=== PATIENT | female | born 1990 | race African-American/Black ===

== ENCOUNTER 2022-11-07 18:44 | Emergency (ER) | payer MEDICARE ==
[~2022-11-07] VITALS: Ht 172.7 cm; Wt 77.0 kg
[2022-11-07 18:56] VITALS: BP 113/87; O2SAT 100
[2022-11-07 19:01] VITALS: PULSE 83; RESP 20
[2022-11-07] MEDS ORDERED: ACETAMINOPHEN 325MG TABLET PO STA (20:31)
[2022-11-07] MEDS ORDERED: ACET-2708 PO (20:44)
[2022-11-07] MEDS ORDERED: LORA-1349 PO (20:44)
[2022-11-07] MEDS ORDERED: DOXY100T28 PO (20:44)
[2022-11-07 21:06] VITALS: TEMP 98.9
== END 2022-11-07 23:04 | disposition home or self-care (01) ==
LOC: ER 18:44
DX: S80.862A Insect bite (nonvenomous), left lower leg, initial encounter (principal); W57.XXXA Bitten or stung by nonvenomous insect and other nonvenomous arthropods, initial encounter; Y93.89 Activity, other specified; Y92.89 Other specified places as the place of occurrence of the external cause; Y99.8 Other external cause status
CPT/HCPCS: 81025; 99283

== ENCOUNTER 2022-12-17 11:40 | Emergency (ER) | payer OTHER, MEDICAID ==
[~2022-12-17] VITALS: Ht 170.2 cm; Wt 73.0 kg
[~2022-12-17 11:40] MED LIST: ACET-2708 PO; DOXY100T28 PO; LORA-1349 PO
[2022-12-17 12:11] VITALS: BP 111/81
[2022-12-17 12:15] VITALS: TEMP 98.6
[2022-12-17] MEDS ORDERED: IPRATROPIUM BROMIDE (0.02%) 0.5MG/2.5ML NEB HHN ONE (12:15)
[2022-12-17] MEDS ORDERED: METHYLPREDNISOLONE SOD SUCC 125MG/2ML (ACT-O-VIAL) IM ONE (12:15)
[2022-12-17] MEDS ORDERED: ACETAMINOPHEN 325MG TABLET PO ONE (12:15)
[2022-12-17] MEDS ORDERED: ALBUTEROL (0.083%) 2.5MG/3ML NEB HHN ONE (12:15)
[2022-12-17 12:34] LABS: CLARITY URINE CLEAR (CLEAR); COLOR URINE YELLOW (YELLOW); GLUCOSE URINE NEGATIVE (NEGATIVE); KETONES URINE NEGATIVE (NEGATIVE); LEUKOCYTE ESTERASE URINE TRACE (NEGATIVE); NITRITE URINE NEGATIVE (NEGATIVE); OCCULT BLOOD URINE NEGATIVE (NEGATIVE); PROTEIN URINE NEGATIVE (NEGATIVE); SPECIFIC GRAVITY URINE 1.009 (1.005-1.030); UROBILINOGEN URINE 0.2 E.U./dL (0.2-1.0)
[2022-12-17 12:36] LABS: WBC URINE 0-2 /hpf (0-2); YEAST URINE NONE SEEN
[2022-12-17 13:06] LABS: BACTERIA URINE FEW; RBC URINE 0-2 /hpf (0-2); SQUAMOUS EPITHELIAL CELL URINE RARE /lpf (RARE/1+)
[2022-12-17 13:50] VITALS: PULSE 91; RESP 20; O2SAT 99
[2022-12-17] MEDS ORDERED: PREDNISONE 20MG TABLET PO ONE (14:00)
[2022-12-17] MEDS ORDERED: ACETAMINOPHEN 325MG TABLET PO NR (14:00)
[2022-12-17] MEDS ORDERED: METHYLPREDNISOLONE ACETATE 40MG/ML VIAL IM ONE (14:15)
[2022-12-17] MEDS ORDERED: P50 MT (14:56)
[2022-12-17] MEDS ORDERED: ALBU18HF2 IH (14:56)
[2022-12-17] MEDS ORDERED: ACET-2708 PO (14:56)
[2022-12-17] MEDS: METHYLPREDNISOLONE SOD SUCC 125MG/2ML (ACT-O-VIAL) IM NR ×2 (15:47→16:45)
== END 2022-12-17 16:49 | disposition home or self-care (01) ==
LOC: ER 12:00
DX: Z88.6 Allergy status to analgesic agent (principal); M54.9 Dorsalgia, unspecified; J45.901 Unspecified asthma with (acute) exacerbation
CPT/HCPCS: 81003; 81025; 71045; 94640; 99284; J2930; Z7610 ×3; J1030; J7512